=== PATIENT | female | born 1945 | race Caucasian/White ===

== ENCOUNTER → 2016-10-20 | Outpatient (CLI) | payer MEDICARE ==
[~2016-10-20] MED LIST: CALTTAB PO; CARV3.12 PO; CLOP75 PO; FOSA70TA PO; GEMF600 PO; HYDR-3533 PO; LEVO50TA51 PO; OMEGA 3 PO; PRAV20 PO; PROT40TA PO; SPIRCAP INH; TEMA15CA PO; TRAM50TA PO
[2016-10-20 09:34] LABS: BLOOD, URINE NEG (NEG); COMMENT (UR) CULT NOT INDICATED; CULTURE IF INDICATED CULT NOT INDICATED; GLUCOSE,URINE NEG (NEG); HYALINE CAST, URINE 1 /lpf (RARE); KETONE, URINE NEG (NEG); MUCUS URINE FEW /lpf (OCC); NITRITE,URINE NEG (NEG); SQUAMOUS EPITHELIAL CELL URINE <1 /hpf (0-5); URINE COLOR YELLOW (YELLW/STRAW)
[2016-10-20 09:43] LABS: BASOPHIL # 0.1 TH/MM3 (0-0.2); BASOPHIL % 2.1 % (0.0-2.0); EOSINOPHIL # 0.2 TH/MM3 (0-0.4); EOSINOPHIL % 3.8 % (0.0-4.0); HEMATOCRIT 40.4 % (35.0-46.0); HEMO FLAGS DIFF FINAL; LYMPH % 36.3 % (9.0-44.0); LYMPHOCYTE # 2.2 TH/MM3 (1.0-4.8); MEAN CELL VOLUME 81.1 FL (80.0-100.0); MEAN CORPUSCULAR HEMOGLOBIN 26.1 PG (27.0-34.0); MEAN CORPUSCULAR HGB CONC 32.2 % (32.0-36.0); MONO % 8.1 % (0.0-8.0); NEUT % 49.7 % (16.0-70.0); PLATELET COUNT 252 TH/MM3 (150-450); RED BLOOD COUNT 4.98 MIL/MM3 (4.00-5.30)
[2016-10-20 09:59] LABS: POTASSIUM 4.9 MEQ/L (3.5-5.1)
== END ==
LOC: PLAB 07:43
PROVIDERS: ATTEND Internal Medicine Nephrology
DX: N18.3 Chronic kidney disease, stage 3 (moderate) (principal); E55.9 Vitamin D deficiency, unspecified
CPT/HCPCS: 36415; 80069; 81001; 82306; 82570; 83970; 84156; 85025

== ENCOUNTER → 2017-05-10 | Outpatient (CLI) | payer MEDICARE ==
[2017-05-10 10:00] LABS: BLOOD, URINE NEG (NEG); COMMENT (UR) CULT NOT INDICATED; CULTURE IF INDICATED CULT NOT INDICATED; GLUCOSE,URINE NEG (NEG); KETONE, URINE NEG (NEG); MUCUS URINE FEW /lpf (OCC); NITRITE,URINE NEG (NEG); PH, URINE 6.5 (5.0-8.5); SQUAMOUS EPITHELIAL CELL URINE <1 /hpf (0-5); URINE COLOR LIGHT-YELLOW (YELLW/STRAW)
[2017-05-10 10:18] LABS: HDL CHOLESTEROL 70.8 MG/DL (40.0-60.0)
[2017-05-10 10:46] LABS: BICARBONATE 26.3 MEQ/L (21.0-32.0)
[2017-05-10 10:47] LABS: POTASSIUM 4.8 MEQ/L (3.5-5.1)
[2017-05-10 16:11] LABS: AUTOMATED NEUTROPHIL # 2.7 TH/MM3 (1.8-7.7); BASOPHIL # 0.1 TH/MM3 (0-0.2); BASOPHIL % 1.5 % (0.0-2.0); EOSINOPHIL # 0.3 TH/MM3 (0-0.4); EOSINOPHIL % 4.2 % (0.0-4.0); HEMATOCRIT 40.6 % (35.0-46.0); HEMO FLAGS DIFF FINAL; LYMPH % 44.6 % (9.0-44.0); LYMPHOCYTE # 2.8 TH/MM3 (1.0-4.8); MEAN CORPUSCULAR HEMOGLOBIN 27.8 PG (27.0-34.0); MEAN CORPUSCULAR HGB CONC 33.5 % (32.0-36.0); NEUT % 42.7 % (16.0-70.0); PLATELET COUNT 305 TH/MM3 (150-450); RED BLOOD COUNT 4.89 MIL/MM3 (4.00-5.30); WHITE BLOOD COUNT 6.4 TH/MM3 (4.0-11.0)
== END ==
LOC: PLAB 07:27
PROVIDERS: ATTEND Internal Medicine Nephrology
DX: E78.2 Mixed hyperlipidemia (principal); N18.3 Chronic kidney disease, stage 3 (moderate); N25.81 Secondary hyperparathyroidism of renal origin; E55.9 Vitamin D deficiency, unspecified; I63.50 Cerebral infarction due to unspecified occlusion or stenosis of unspecified cerebral artery; J44.9 Chronic obstructive pulmonary disease, unspecified; I70.219 Atherosclerosis of native arteries of extremities with intermittent claudication, unspecified extremity; I65.29 Occlusion and stenosis of unspecified carotid artery; E03.9 Hypothyroidism, unspecified; K21.9 Gastro-esophageal reflux disease without esophagitis; Z12.31 Encounter for screening mammogram for malignant neoplasm of breast; Z11.59 Encounter for screening for other viral diseases; G89.29 Other chronic pain
CPT/HCPCS: 80061; 80069; 81001; 82306; 82570; 83970; 84156; 85025; 86803